=== PATIENT | female | born 1945 ===

== ENCOUNTER 2018-07-20 20:02 | Inpatient (IN) | payer OTHER ==
[~2018-07-20] VITALS: Ht 167.6 cm; Wt 74.8 kg
[~2018-07-20 20:02] MED LIST: DITROPAN5 MG PO; KEFLEX500 MG PO; OXYBUTYNIN15 MG/BOTT PO; PEPCID20 MG PO; PERCOCET 5/3251 TAB PO; Zolpidem Tartrate 5MG PO
== END 2018-07-27 14:15 | disposition home or self-care (01) | DRG 390 ==
LOC: ER 20:02 → SURH 07-21 13:57
PROVIDERS: ADMIT Colon & Rectal Surgery
PROC: 3E0G76Z Introduction of Nutritional Substance into Upper GI, Via Natural or Artificial Opening (ICD-10-PCS; principal; 2018-07-22)
DX: K56.51 Intestinal adhesions [bands], with partial obstruction (principal); K43.5 Parastomal hernia without obstruction or gangrene; K43.9 Ventral hernia without obstruction or gangrene; K80.20 Calculus of gallbladder without cholecystitis without obstruction; Z93.3 Colostomy status; Z93.6 Other artificial openings of urinary tract status; Z93.1 Gastrostomy status

== ENCOUNTER 2024-11-05 17:11 | Inpatient (IN) | payer OTHER ==
[~2024-11-05] VITALS: Ht 175.3 cm; Wt 54.4 kg
[2024-11-05] MEDS ORDERED: ATORVASTATIN CA40 MG PO (17:24)
[2024-11-05] MEDS ORDERED: LOSARTAN POTASS50 MG PO (17:25)
[2024-11-05] MEDS ORDERED: RESTORIL15 MG PO (17:25)
[2024-11-05] MEDS ORDERED: GABAPENTIN400 MG PO (17:25)
--- NOTE | 2024-11-05 17:25 | NUR ---
PTE ALERTA Y ORIENTADA X3 EN COMPANIA DE AMBULANCIA TRANSFER DE MENCIERRAA JOSE. PTE CON SONDA NASOGASTRICO LADO DERECHO.
[2024-11-05] MEDS ORDERED: 0.9 % SODIUM CHLORIDE 1,000 ML IV STA (18:05)
[2024-11-05] MEDS ORDERED: MORPHINE SULFATE 4 MG/ML VIAL IV ONE (18:15)
[2024-11-05] MEDS ORDERED: FAMOTIDINE/PF 20 MG/2 ML VIAL IV ONE (18:15)
--- NOTE | 2024-11-05 18:58 | NUR ---
RN VINNIE ORIENTA PTE Y FAMILIAR SOBRE TX MEDICO Y AMBOS REFIEREN ENTENDER. SE ADMINISTRAN MEDICAMENTOS JARED ORDEN MEDICA BAJO MEDIDAS ASEPTICAS.
--- NOTE | 2024-11-05 19:02 | NUR ---
SE ORIENTA A PACIENTE SOBRE TX MEDICO Y EL MISMO REFIERE ENTENDER Y ACEPTAR YUNIER. SE PROCEDE A CANALIZAR PACIENTE BAJO MEDIDAS ASEPTICAS VIOLA DE EDEMA Y ERITEMA.
[2024-11-05 19:05] VITALS: BP 139/78
[2024-11-05] MEDS ORDERED: MORPHINE SULFATE 4 MG/ML CARTRIDGE IV PRN (19:30)
[2024-11-05] MEDS ORDERED: ACETAMINOPHEN 325 MG TABLET PO PRN (19:30)
[2024-11-05] MEDS ORDERED: 0.9 % SODIUM CHLORIDE 1,000 ML IV SCH (19:30)
[2024-11-05] MEDS ORDERED: ONDANSETRON HCL 4 MG in 0.9 % SODIUM CHLORIDE 50 ML IV PRN (19:30)
[2024-11-05] MEDS ORDERED: GABAPENTIN 400 MG CAPSULE PO SCH (21:00)
[2024-11-05 21:40] VITALS: BP 127/61; O2SAT 95
[2024-11-06] VITALS: BP 109/57; O2SAT 96
[2024-11-06] MEDS ORDERED: PIPERACILLIN/TAZOBACTAM SODIUM 3.375 GM in 0.9 % SODIUM CHLORIDE 100 ML IV SCH
[2024-11-06 08:00] VITALS: BP 130/70; O2SAT 96
[2024-11-06 08:13] LABS: BASO % 0.3 % (0.1-1.2); EOS # 0.07 (0.04-0.54); EOS % 1.0 % (0.7-7.0); LYMPH # 1.10 (1.18-3.74); LYMPH % 16.0 % (19.3-53.1); MEAN PLATELET VOLUME 10.70 fl (9.4-12.4); MONO # 0.62 (0.24-0.82); MONO % 9.0 % (4.7-12.5); NEUT # 5.06 (1.56-6.13); NEUT % 73.6 % (34.0-71.1); RED CELL DISTRIBUTION WIDTH 13.3 % (11.6-14.4)
[2024-11-06 08:24] LABS: INR 1.1
[2024-11-06] MEDS ORDERED: FAMOTIDINE/PF 20 MG/2 ML VIAL IV SCH (09:00)
[2024-11-06 09:02] LABS: ALT/SGPT 15.0 U/L (12-78); AST/SGOT 20.0 U/L (15-37); BILIRUBIN TOTAL 1.26 mg/dL (0.3-1.2); BUN CREA RATIO 9.0 (7.0-25.0); CHOL HDL RATIO 1.7 (0-5.0); CREATININE SERUM 0.88 mg/dL (0.55-1.02); GFR 62.47; GLOBULINA 3.6 G/DL (2.4-3.5); GLUCOSE FASTING 98.0 mg/dL (65-100); HDL 57.0 mg/dl (40-60); LDL 29.0 mg/dl (0-130); OSMOLALITY SERUM 289.0 MOSM/KG (275-295); TSH 2.1 uIU/mL (0.358-3.74); VLDL 12.0 (0-39)
[2024-11-06] MEDS ORDERED: ENOXAPARIN SODIUM 40 MG/0.4 ML SYRINGE SUBCUTANEO SCH (14:11)
[2024-11-06 16:00] VITALS: BP 128/65; O2SAT 99
[2024-11-06] MEDS ORDERED: ATORVASTATIN CALCIUM 10 MG TABLET PO SCH (17:00)
[2024-11-06] MEDS ORDERED: LORazepam 2 MG/ML VIAL IV SCH (21:00)
[2024-11-06] MEDS ORDERED: ENALAPRILAT DIHYDRATE 1.25 MG/ML VIAL IV PRN (21:00)
[2024-11-07 01:40] VITALS: BP 96/54; O2SAT 96
[2024-11-07 08:00] VITALS: BP 102/61; O2SAT 95
[2024-11-07 16:43] VITALS: BP 108/67; O2SAT 95
[2024-11-07] MEDS ORDERED: RINGERS SOLUTION,LACTATED 1,000 ML IV STA (16:55)
[2024-11-08 00:32] VITALS: BP 130/72; O2SAT 96
[2024-11-08 08:00] VITALS: BP 135/69; O2SAT 98
[2024-11-08 15:37] VITALS: BP 139/70; O2SAT 98
[2024-11-09 01:27] VITALS: BP 94/54; O2SAT 100
[2024-11-09 06:56] LABS: BASO % 0.5 % (0.1-1.2); EOS # 0.06 (0.04-0.54); EOS % 0.9 % (0.7-7.0); LYMPH # 0.98 (1.18-3.74); LYMPH % 15.5 % (19.3-53.1); MEAN PLATELET VOLUME 9.90 fl (9.4-12.4); MONO # 0.48 (0.24-0.82); MONO % 7.6 % (4.7-12.5); NEUT # 4.76 (1.56-6.13); NEUT % 75.2 % (34.0-71.1); RED CELL DISTRIBUTION WIDTH 13.8 % (11.6-14.4)
[2024-11-09 07:35] LABS: ALT/SGPT 17.0 U/L (12-78); AST/SGOT 24.0 U/L (15-37); BILIRUBIN TOTAL 1.41 mg/dL (0.3-1.2); BUN CREA RATIO 20.0 (7.0-25.0); CREATININE SERUM 0.82 mg/dL (0.55-1.02); GFR 67.6; GLOBULINA 3.5 G/DL (2.4-3.5); OSMOLALITY SERUM 283.0 MOSM/KG (275-295)
[2024-11-09 07:44] LABS: GLUCOSE FASTING 42.0 mg/dL (65-100)
[2024-11-09 08:00] VITALS: BP 127/52; O2SAT 97
[2024-11-09] MEDS ORDERED: DEXTROSE 50 % IN WATER 0.5 G/ML VIAL IV PRN ×2 (08:15→17:45)
[2024-11-09 16:10] VITALS: BP 111/65; O2SAT 98
[2024-11-09] MEDS ORDERED: INSULIN LISPRO 1,000 UNIT/10 ML UNITS SUBCUTANEO PRN (17:45)
[2024-11-10 04:45] VITALS: BP 135/68; O2SAT 98
[2024-11-10 08:00] VITALS: BP 157/70; O2SAT 96
[2024-11-10 16:35] VITALS: BP 124/74; O2SAT 97
== END 2024-11-10 23:11 | disposition home or self-care (01) | DRG 389 ==
LOC: ER 17:11 → SURG 19:42
PROVIDERS: General Practice; Specialist; ADMIT Colon & Rectal Surgery; ATTEND Colon & Rectal Surgery
DX: K56.51 Intestinal adhesions [bands], with partial obstruction (principal); K90.49 Malabsorption due to intolerance, not elsewhere classified; K43.5 Parastomal hernia without obstruction or gangrene; Z85.048 Personal history of other malignant neoplasm of rectum, rectosigmoid junction, and anus; Z93.3 Colostomy status; E78.5 Hyperlipidemia, unspecified; I10 Essential (primary) hypertension